=== PATIENT | female | born 1965 | race Caucasian/White ===

== ENCOUNTER → 2019-12-11 | Outpatient (CLI) | payer OTHER ==
--- NOTE | 2019-12-11 11:27 | EST ---
EXERCISE STRESS AGE: 54 SEX: Female HT: 63" WT: 143 pounds PROTOCOL: Ash STAGE: III DURATION OF EXERCISE: 8 minutes HEART RATE REST: 82 BLOOD PRESSURE REST: 115/76 MAXIMUM HEART RATE ACHIEVED: 158 MAXIMUM BLOOD PRESSURE: 164/66 85% MPHR: 139 100% MPHR: 164 METS: 9 INDICATIONS: Chest pain. CLINICAL INFORMATION: Baseline EKG shows sinus rhythm, normal axis, normal interval. Patient exercised on Ash protocol for a total of 8 minutes achieving 9 METs, 85% of predicted maximal heart rate without chest pain or diagnostic ST-segment depression. Occasional PVCs are noted at peak exercise. CONCLUSIONS: 1. Above-average exercise tolerance. 2. Negative stress test by EKG criteria. 3. PVCs with exercise. MMODL / IJN: [id number] /
== END | disposition home or self-care (01) ==
LOC: RADNMMAIN 08:45
PROVIDERS: ATTEND Family Medicine
DX: R07.9 Chest pain, unspecified (principal)
CPT/HCPCS: 93017